=== PATIENT | female | born 1985 | race Caucasian/White ===

== ENCOUNTER 2017-12-15 06:35 | Outpatient (CLI) | payer OTHER ==
[~2017-12-15] VITALS: Ht 170.2 cm; Wt 66.6 kg
--- NOTE | ~2017-12-15 | P ---
[facility] [place] [address] PROCEDURE REPORT Name: GINNA BLANKENSHIP Room #: DEP KIP Vargas.#: [id number] Admission: 12/15/17 Attend Phys: Giuseppe Knight MD Discharge: 12/16/17 Date of : 81 Report #: [id number] THIS REPORT FOR: //name// CC: Giuseppe Hung Kimberlee Chowdary Bere DATE OF SERVICE: 12/15/2017 PROCEDURE: Supraventricular tachycardia ablation. PREOPERATIVE DIAGNOSIS: Supraventricular tachycardia. POSTOPERATIVE DIAGNOSES: 1. Right-sided concealed accessory pathway. 2. Typical atrioventricular collins reentrant tachycardia. 3. Atrial tachycardia. 4. Atrial fibrillation and typical atrial flutter. HISTORY: The patient with a history of SVT, who is here for EP study and ablation. DESCRIPTION OF PROCEDURE: The patient underwent informed consent. We discussed the details of the procedure including the risk, which include but not limited to bleeding, infection, vascular damage, cardiac perforation as well as damage to the [place] conduction system requiring permanent pacemaker. She understood these risks and is willing to proceed. As such, the patient was sedated by the Anesthesiology Service and underwent Local MAC. I then injected lidocaine to the bilateral groin regions and obtained access to bilateral femoral veins, placing an 8-Turkish and 6-Turkish short sheath in the right femoral vein and a 6-Turkish and 7-Turkish short sheath in the left femoral vein. Under fluoroscopy, I then placed 3 quadripolar catheters at the HRA, His, and RV positions and a decapolar catheter easily in the coronary sinus. Next, a basic EP study was performed. At baseline, the patient was in sinus rhythm with sinus cycle length of 840 milliseconds, NM interval 150 milliseconds, QRS duration 85 milliseconds, QT interval 400 milliseconds, AH interval 107 milliseconds, and an HV interval 35 milliseconds. Next, atrial burst pacing was performed and AV block was noted at 360 milliseconds. The patient then had a spontaneous episode of atrial fibrillation lasting approximately 10 seconds. In AFib, there was no evidence of manifest preexcitation. Next, I gave a single atrial extrastimuli and the patient went into SVT with a tachycardia cycle length of 355 milliseconds and a septal VA time of 135 milliseconds. Attempts to entrain this were unsuccessful. Next, ventricular pacing was performed and VA block was noted at 280 milliseconds, VA conduction appeared to be midline. A single ventricular extrastimuli were delivered and ventricular ERP was noted at 250 milliseconds at a [address] cycle length. Again, VA conduction appeared to [facility] [address] [place] [address] PROCEDURE REPORT Name: GINNA BLANKENSHIP Room #: DEP [facility]#: [id number] Admission: 12/15/17 Attend Phys: Giuseppe Knight MD Discharge: 12/16/17 Date of : 81 Report #: [id number] be midline and decremental. Next, isoproterenol was initiated at 1 mcg per minute and after prolonged testing, the patient went into SVT with a septal VA time of 135 milliseconds with a tachycardia cycle length of 300 milliseconds. Now, I could easily entrain this tachycardia, which demonstrated a VAHV response. The PPI minus tachycardia cycle length was anywhere from 50-60 milliseconds consistent with an accessory pathway mediated tachycardia. In sinus rhythm, I performed parahisian pacing and this was consistent with a collins response suggesting that this was not a septal pathway. The CS activation I made was clear that this was not a left-sided pathway. Next, I placed a 4 mm Biosense Judge ablation catheter into the right atrium and we performed an activation map of the right atrium. I started by pacing the right ventricle and performed an activation map and this demonstrated that there was a right-sided accessory pathway at around 8 or 9 o'clock along the tricuspid annulus. At this site, there was fusion of the atrial and ventricular signals while I paced the ventricle. The patient did go into tachycardia and we mapped the tachycardia as well and everything was earliest at this location. Therefore, it appeared that we had a right-sided concealed accessory pathway orthodromic tachycardia. My initial ablation lesion did not result in loss of the pathway. A second lesion actually induced another tachycardia that was consistent with typical AV collins reentrant tachycardia with a septal VA time of 35 milliseconds and this terminated spontaneously with an atrial signal. Ablation of typical AV collins reentrant tachycardia. As such, I decided to go after this AV collins reentrant tachycardia as this was likely the easier of the two arrhythmias. I did put up an SR0 sheath and we performed ablation at 50 enriquez 55 degrees at the area of the slow pathway and we had nice slow junctionals suggesting nice slow junctionals at this location. For the remainder of the procedure, this SVT could no longer be induced. As such, I refocused on the accessory pathway. I performed an additional 2 ablation lesions at the accessory pathway and on the fourth lesion, there was clearly loss of conduction on the pathway. We therefore performed testing and while trying to induce the tachycardia, the patient developed typical atrial flutter. The patient required a 200 joule synchronized cardioversion for yazdanism of sinus rhythm. I think this was likely a nonspecific finding and therefore, I did not proceed with ablation of this. We performed additional ablation at the level of the accessory pathway. What is interesting is it appeared that the patient started having a spontaneous tachycardia that I thought was initially return of the accessory pathway, but it appears that there was an atrial tachycardia arising near this pathway as it did not appear that we had a clear return of the pathway potential and there was these burst of tachycardia. I was able to map this just lateral to the actual accessory pathway. We performed additional ablation at this site and this resulted in acceleration of the tachycardia and then degeneration into atrial fibrillation and atrial flutter that would terminate on its own. We continued testing and we could no longer induce this accessory pathway mediated tachycardia. This was [facility] [address] [place] [address] PROCEDURE REPORT Name: PATTIEGINNA WILLY Room #: DEP KIP Lazaro#: [id number] Admission: 12/15/17 Attend Phys: Giuseppe Knight MD Discharge: 12/16/17 Date of : 81 Report #: [id number] actually a long procedure lasting almost 6 hours due to difficulty with induction and then induction of atrial fib and atrial flutter and having difficulty reinitiating the SVT to map, but eventually the patient was rendered non-inducible. Post-ablation, the patient was in sinus rhythm with sinus cycle length of 535 milliseconds, NM interval 150 milliseconds, QRS duration 80 milliseconds, QT interval 350 milliseconds, AH interval 70 milliseconds, and HV interval 40 milliseconds. As such, all catheters and sheaths were pulled. Hemostasis was obtained and the patient awoke neurologically and hemodynamically intact with no complications and no significant bleeding. CONCLUSIONS: 1. Successful ablation of a right-sided concealed accessory pathway resulting in orthodromic tachycardia eliminated with ablation. 2. Successful ablation of typical AV collins reentrant tachycardia. 3. Likely successful ablation of an atrial tachycardia that was arising near the accessory pathway, which may have been an arrhythmia caused by thermal injury from the pathway ablation. 4. Induction of atrial fibrillation and typical atrial flutter of unknown clinical significance. <ELECTRONICALLY SIGNED> By: Giuseppe Knight MD 03/01/18 0829 [id number] 01 Giuseppe Knight MD /nt
[~2017-12-15 06:35] MED LIST: B12 PO; CLARITIN10 MG; FLONASE 0.05%50 MCG NASAL; IRON325 PO; NAPROSYN500 MG PO; PERCOCET PO; SORINE 80 MG TA80 M1 PO; ULTRACET TABLET1 TAB PO; ZOFRAN ODT4 MG PO; ZYRTEC10 M5 PO
[2017-12-15] MEDS ORDERED: ALLEGRA ALLERG180 MG PO (07:01)
[2017-12-15] MEDS ORDERED: XANAX 0.25 MG0.25 MG PO (07:01)
[2017-12-15 07:09] VITALS: BP 127/79
[2017-12-15 07:24] LABS: ABSOLUTE NEUTROPHILS 3.7 thou/uL (1.4-8.2); BASOPHILS 0.8 % (0.0-2.0); EOSINOPHILS 2.5 % (0.0-3.0); HEMATOCRIT 36.5 % (37.0-47.0); HEMOGLOBIN 12.4 gm/dL (12.0-15.0); LYMPHOCYTES 25.8 % (24.0-44.0); MCH 31.8 pg (26.0-34.0); MCHC 33.9 g/dL (28.0-37.0); MCV 93.7 fL (80.0-100.0); MONOCYTES 6.5 % (1.0-8.0); PLATELET COUNT 234 thou/uL (150-400); POLYS 64.4 % (36.0-66.0); RBC 3.89 mil/uL (4.20-5.00); RDW 13.9 % (10.5-14.5); WBC 5.7 thou/uL (4.0-11.0)
[2017-12-15 07:30] LABS: CALCIUM 8.6 mg/dL (8.5-10.1); CREATININE 0.8 mg/dL (0.6-1.0); POTASSIUM 3.7 mmol/L (3.5-5.1)
[2017-12-15 07:35] LABS: APTT 27.5 Seconds (24.5-32.8); INR 1.6; PROTIME 15.9 Seconds (9.3-11.4)
[2017-12-15 07:36] LABS: ALBUMIN 3.9 g/dL (3.4-5.0); TOTAL BILIRUBIN 0.4 mg/dL (<0.1-1.0); TOTAL PROTEIN 7.2 g/dL (6.4-8.2)
[2017-12-15 19:34] VITALS: BP 127/82
[2017-12-16 00:22] VITALS: BP 94/59
[2017-12-16 04:51] VITALS: BP 88/55
[2017-12-16 06:14] VITALS: BP 94/52
[2017-12-16 07:30] VITALS: BP 100/61
[2017-12-16] MEDS ORDERED: XARELTO20 MG PO (09:09)
[2017-12-16] MEDS ORDERED: PAIN & FEVER325 MG PO (09:09)
[2017-12-16] MEDS ORDERED: IRON325 PO (09:10)
[2017-12-16] MEDS ORDERED: ZYRTEC10 M5 PO (09:10)
[2017-12-16] MEDS ORDERED: B12 PO (09:10)
[2017-12-16 09:18] VITALS: BP 100/61
== END 2017-12-16 16:00 | disposition home or self-care (01) ==
LOC: CATH 06:35 → 2N 17:19 → CATH 12-16 16:00
PROVIDERS: Internal Medicine Cardiovascular Disease
DX: I47.1 Supraventricular tachycardia (principal); I48.91 Unspecified atrial fibrillation; I48.4 Atypical atrial flutter; F41.9 Anxiety disorder, unspecified; Z90.710 Acquired absence of both cervix and uterus; Z79.01 Long term (current) use of anticoagulants; Z98.890 Other specified postprocedural states; Z85.41 Personal history of malignant neoplasm of cervix uteri; Z88.8 Allergy status to other drugs, medicaments and biological substances; Z79.899 Other long term (current) drug therapy
CPT/HCPCS: 10081; 62110; 62900; 70005